=== PATIENT | male | born 2005 | race Caucasian/White ===

== ENCOUNTER 2025-06-04 18:31 | Emergency (ER) | payer BC, SELFPAY ==
[2025-06-04 18:46] VITALS: BP 136/62; PULSE 75; RESP 18; TEMP 36.8; O2SAT 99; BMI 22.7
--- NOTE | 2025-06-04 18:57 | PC.NURSE ---
laceration wrapped with gauze and coban applied
[2025-06-04] MEDS: LIDOCAINE 1% 10ML MDV 10 ML SUBCUT (19:52)
--- NOTE | 2025-06-04 20:34 | ED_ITS ---
Discharge Plan Disposition Patient Disposition: Home, Self-Care Condition: Good Prescriptions Prescriptions: No Action No Known Home Medications Referrals Follow up/Referrals: Laquita Alva APRN [Primary Care Provider, Medical] - See instructions Activity Restrictions/Add. Instructions Additional Instructions/Restrictions: Please place bacitracin on your finger daily. If you have develop of pus drainage, streaking redness, significant swelling of the finger, or difficulty with range of motion of the finger please return. Clinical Impressions Clinical Impression: Finger laceration Qualifiers: Encounter type: initial encounter Finger: index finger Damage to nail status: without damage Foreign body presence: without foreign body Laterality: left Qualified Code(s): S61.211A - Laceration without foreign body of left index finger without damage to nail, initial encounter Instructions Patient Instructions: DI for Laceration Repair Print Language Print Language: Citizen Of [place] Discharge ED Provider: Levi Rosales General Adult HPI General Chief complaint: Wound/Laceration Stated complaint: AO 10-9 cut on left hand Time Seen by Provider: 06/04/25 19:04 Mode of Arrival: Ambulatory Source of Information: Patient Description of Symptoms (Recalled from ER Triage Doc. by RN): Pt presents for evaluation of a laceration to his left index finger. t-dap utd History of Present Illness HPI narrative: This is a 19-year-old male patient who is presenting to the emergency department today for evaluation of a laceration of his left index finger. He states that he was shaving his face this evening. After shaving there was hairs caught within the blades of the razor and he was trying to remove the hairs from within the blades and the blade lacerated his finger. He was able to achieve hemostasis prior to arrival. He has had no difficulty with sensory deficits or motor deficits since this incident. He is on no blood thinners. Tdap is up-to-date. Related Data Home Medications ?Medication ?Instructions ?Recorded ?Confirmed No Known Home Medications 04/14/1903/27 Allergies Allergy/AdvReac Type Severity Reaction Status Date / Time No Known Allergies Allergy Verified 04/14/19 14:17 [facility] Disclaimer: The information contained in this section may have been updated after the patient was seen, as this information can be updated by other users. Social History Smoking Status: Never smoker alcohol intake: never substance use type: denies use current occupational status: student Travel in the last 8 weeks?: None Have you lived/traveled outside [place] in past 30 days?: No Contact w/someone who lives/traveled outside US past 30 days?: No Exposure to someone with infectious disease in past 14 days?: No Do you have a fever (greater than 100.4 F or 38 C)?: No Have you tested positive for COVID-19?: No Exposed to someone with COVID-19 in past 14 days?: No Do you have a sore throat?: No Do you have a cough?: No Do you have any weakness?: No Do you have any diarrhea?: No Are you experiencing any unusual bleeding?: No Do you have any muscle aches/pain?: No Do you have any abdominal pain?: No Are you experiencing loss of taste or smell?: No Other Medical History Have you received the Pneumonia Vaccine: No ROS Obtained: Yes Systems reviewed as appropriate & no additional complaints ex cept as documented Physical Exam General General appearance: other (See MDM) Respiratory Respiratory exam: Present other (See MDM) Cardiovascular Cardiovascular exam: Present other (See MDM) Neurological Exam Neurological exam: Present other (See MDM) Medical Decision Making Medical Records Medical records reviewed: Yes I reviewed the patient's medical records. Screening: Per USPSTF and CDC recommendations, given the prevalence of disease in our region, it is our hospital?s policy to screen for HIV and viral Hepatitis for all patients aged 18 and over and those with ongoing risk factors. Sergio Inquiry Pt receiving controlled substance: No Sergio was queried for this patient: No Vital Signs: 06/04/25 18:46 06/04/25 20:40 Temperature 98.3 F 98.2 F Temperature Source Oral Oral Pulse Rate 72 Pulse Rate [Right] 75 Respiratory Rate 18 18 Blood Pressure 124/80 Blood Pressure [Right Arm] 136/62 Blood Pressure Mean [Right Arm] 86 Blood Pressure Source [Right Arm] Automatic Cuff Blood Pressure Position [Right Arm] Sitting 02 Sat by Pulse Oximetry 99 Oxygen Delivery Method Room Air Room Air Orders (Tests/Meds): ED MEDICATIONS Discontinued Medications Generic Name Dose Route Start Last Admin Trade Name Freq PRN Reason Stop Dose Admin Bacitracin 1 gm 06/04/25 20:34 06/04/25 20:39 Bacitracin Zinc Oint 30gm Tube TP 06/04/25 20:35 1 gm ONCE ONE Administration Lidocaine HCl 10 ml 06/04/25 19:38 06/04/25 19:52 Lidocaine 1% 10ml Mdv SUBCUT 06/04/25 19:39 10 ml ONCE ONE Administration Medical Decision Narrative: In summary, this is a 19-year-old male patient who is presenting to the emergency department today for evaluation of a laceration to the left index finger. Wound was hemostatic on arrival. He does not complain of any sensorimotor deficits. This patient has no comorbidities that would complicate their medical management or care. On initial evaluation of the patient they were resting comfortably in no acute distress and nontoxic in appearance. They are hemodynamically stable, saturating well room air, and are neurologically intact. On physical examination the patient's wound is hemostatic. He has an approximate 2 cm laceration to the ulnar aspect of his left index finger. He has normal sensation in all terminal nerve distributions. Wound is clean. Deep structures are intact. Differential diagnosis includes skin laceration, skin abrasion, among others. Low concern for embedded foreign body given that the full extent of the wound is visible and there is no obvious foreign body present. Patient did not necessitate any labs or imaging for his workup. We proceeded with a shared decision making discussion about mechanisms for repair. Given how small this laceration is I informed the patient that this could be amenable to repair with Steri-Strips as well as glue. He and his mother feel very strongly that they would like for him to have stitches. Therefore we proceeded with suture repair. Patient's laceration was thoroughly irrigated with 1 L of saline. 4-0 nylon suture was used to repair the laceration. He required 3 stitches. He tolerated this procedure well. Please see procedure note for details. Analgesia was obtained with 1% lidocaine without epinephrine. We have lathered the patient's wound with bacitracin ointment. We have provided him with a tube of bacitracin to go home with. I have instructed him to use this on the wound at least once daily for the next week. Return precautions have been given. At this time all questions have been answered and all parties are agreeable with the decision to discharge home Procedures Laceration Laceration 1: Site: other (Left index finger) Side (If applicable): left Size (cm): 2 Description: linear Depth: simple, single layer Local Anesthetic: lidocaine 1% Amount of anesthesia used (mL): 3 Pre-repair: wound explored, irrigated extensively and deep structures intact Skin layer closed with: nylon Size (cm): 4-0 Number of sutures: 3 Technique: simple, interrupted Critical Care Critical Care Time Critical Care Time: No
[2025-06-04] MEDS: BACITRACIN ZINC OINT 30GM TUBE TP (20:39)
[2025-06-04 20:40] VITALS: BP 124/80; PULSE 72; RESP 18; TEMP 36.8; O2SAT 98
== END 2025-06-04 20:40 | disposition home or self-care (01) ==
PROVIDERS: Emergency Provider Student in an Organized Health Care Education/Training Program; PCP Nurse Practitioner Family
DX: S61.211A Laceration without foreign body of left index finger without damage to nail, initial encounter (principal); W26.8XXA Contact with other sharp object(s), not elsewhere classified, initial encounter
CPT/HCPCS: 12001; 99282; 99283; J2003

== ENCOUNTER 2025-06-10 14:31 | Emergency (ER) | payer BC, SELFPAY ==
--- NOTE | 2025-06-10 14:35 | [facility].EDGENADL ---
Discharge Plan Prescriptions Prescriptions: No Action No Known Home Medications Referrals Follow up/Referrals: Laquita Alva APRN [Primary Care Provider, Medical] - See instructions Print Language Print Language: [place] Discharge ED Provider: Solange Munoz Adult HPI General Stated complaint: stitch removal L index finger Time Seen by Provider: 06/10/25 14:35 Related Data Home Medications ?Medication ?Instructions ?Recorded ?Confirmed No Known Home Medications 04/14/19 04/14/19 Allergies Allergy/AdvReac Type Severity Reaction Status Date / Time No Known Allergies Allergy Verified 04/14/19 14:17 [facility] Disclaimer: The information contained in this section may have been updated after the patient was seen, as this information can be updated by other users. Social History Smoking Status: Never smoker alcohol intake: never substance use type: denies use current occupational status: student Travel in the last 8 weeks?: None Other Medical History Have you received the Pneumonia Vaccine: No Medical Decision Making Medical Records Screening: Per USPSTF and CDC recommendations, given the prevalence of disease in our region, it is our hospital?s policy to screen for HIV and viral Hepatitis for all patients aged 18 and over and those with ongoing risk factors.
[2025-06-10 14:44] VITALS: BP 117/70; PULSE 68; RESP 17; TEMP 36.8; O2SAT 99; BMI 22.1
[2025-06-10 14:59] VITALS: BP 117/70; PULSE 68; RESP 17; TEMP 36.8; O2SAT 99
== END 2025-06-10 15:05 | disposition home or self-care (01) ==
PROVIDERS: Emergency Provider Student in an Organized Health Care Education/Training Program; PCP Nurse Practitioner Family
DX: Z48.02 Encounter for removal of sutures (principal)
CPT/HCPCS: 99281; 99282